=== PATIENT | female | born 1950 | race African-American/Black ===

== ENCOUNTER 2016-05-15 14:25 | Emergency (ER) | payer MEDICARE, MEDICAID ==
[~2016-05-15] VITALS: Ht 172.7 cm; Wt 111.0 kg
[~2016-05-15 14:25] MED LIST: ASPI-1035 PO; HYDR25TA PO; INSU100I3; LABE200T28 PO; LANTUSUD SUBCUT; LEVO75TA PO; LOSA25TA12 PO; METF-246 PO; OXYB5TAB11 PO; SIMV10TA2 PO
[2016-05-15 19:37] LABS: BASOPHILS % 0.6 % (0.0-2.0); HEMATOCRIT. 39.5 % (36.0-48.0); HEMOGLOBIN. 13.1 g/dL (12.0-16.0); LYMPHOCYTES % 35.2 % (20.0-50.0); MEAN CORPUSCULAR HEMOGLOBIN 29.5 pg (28.0-32.0); MEAN CORPUSCULAR HGB CONC 33.2 g/dL (31.0-37.0); MEAN CORPUSCULAR VOLUME 88.9 fL (81.0-99.0); MEAN PLATELET VOLUME 8.6 fl (7.4-10.4); MONOCYTES % 8.3 % (2.0-8.0); NEUTROPHILS % 52.9 % (40.0-76.0); PLATELET 254 x1000/uL (130-400); RED BLOOD CELL COUNT 4.45 mill/uL (4.2-5.4); WHITE BLOOD COUNT 5.4 x1000/uL (4.5-11.0)
[2016-05-15 19:42] LABS: CHLORIDE 106 mEq/L (98-107); INDEX HEMOLYSI 1 (1-3); INDEX ICTERIC 1 (1-4); INDEX LIPEMIC 1 (1-3)
[2016-05-15 19:43] LABS: PROTHROMBIN TIME 10.6 sec
[2016-05-15 19:47] LABS: CLARITY URINE CLEAR (CLEAR); COLOR URINE YELLOW (YELLOW); GLUCOSE URINE NEGATIVE (NEGATIVE); KETONES URINE TRACE (NEGATIVE); LEUKOCYTE ESTERASE URINE NEGATIVE (NEGATIVE); NITRITE URINE NEGATIVE (NEGATIVE); OCCULT BLOOD URINE NEGATIVE (NEGATIVE); PROTEIN URINE NEGATIVE (NEGATIVE); SPECIFIC GRAVITY URINE 1.026 (1.005-1.030); UROBILINOGEN URINE 0.2 E.U./dL (0.2-1.0)
[2016-05-15 19:47] LABS: ALBUMIN 3.3 g/dL (3.4-5.0); ANION GAP 10; CALCIUM 9.1 mg/dL (8.5-10.1); CARBON DIOXIDE 30 mEq/L (21-32); UREA NITROGEN BLOOD 16 mg/dL (7-21)
[2016-05-15 19:50] LABS: ALANINE AMINOTRANSFERASE 18 IU/L (13-61); eGFR > 60 mL/min (>60)
[2016-05-15 20:29] LABS: MAGNESIUM 1.8 mg/dL (1.8-2.4)
[2016-05-15 22:00] VITALS: BP 130/66
== END 2016-05-15 22:00 | disposition home or self-care (01) ==
LOC: ER 15:28
DX: R25.2 Cramp and spasm (principal); E11.9 Type 2 diabetes mellitus without complications; E78.00 Pure hypercholesterolemia, unspecified; I10 Essential (primary) hypertension; E03.9 Hypothyroidism, unspecified; Z79.4 Long term (current) use of insulin; Z79.82 Long term (current) use of aspirin; Z79.899 Other long term (current) drug therapy; Z98.890 Other specified postprocedural states; Z87.891 Personal history of nicotine dependence
CPT/HCPCS: 36415; 80053; 81003; 82962; 83735; 85025; 85610; 93970; 99285